=== PATIENT | male | born 1965 | race Caucasian/White ===

== ENCOUNTER 2024-03-14 18:25 | Emergency (ER) | payer BC, OTHER ==
[2024-03-14 18:41] VITALS: RESP 18
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
[2024-03-14] MEDS: PROPARACAINE 0.5% OPHTH DROPS 15 ML BTL RIGHT EYE STA (19:54)
[2024-03-14] MEDS: FLUORESCEIN STRIPS 1 MG STRIP RIGHT EYE ONE (19:54)
[2024-03-14] MEDS: CIPROFLOXACIN 0.3% OPHTH SOLN 5 ML BTL RIGHT EYE STA (21:00)
[2024-03-14 21:19] VITALS: BP 130/70; PULSE 80; TEMP 97.8
== END 2024-03-14 21:18 | disposition home or self-care (01) ==
LOC: EC 18:25
DX: H04.121 Dry eye syndrome of right lacrimal gland (principal); F17.200 Nicotine dependence, unspecified, uncomplicated
CPT/HCPCS: 99283